=== PATIENT | male | born 1935 | race Caucasian/White ===

== ENCOUNTER 2016-12-05 15:26 | Observation (INO) | payer MEDICARE, BC ==
[~2016-12-05] VITALS: Ht 182.9 cm; Wt 83.5 kg
[2016-12-05] MEDS ORDERED: FLOM5CAP PO (15:48)
[2016-12-05] MEDS ORDERED: K-TA1TAB PO (15:48)
[2016-12-05] MEDS ORDERED: VITA100066 PO (15:48)
[2016-12-05] MEDS ORDERED: LOSA100T37 PO (15:48)
[2016-12-05] MEDS ORDERED: OMEP40CA2 PO (15:48)
[2016-12-05] MEDS ORDERED: METO25TA74 PO (15:48)
[2016-12-05] MEDS ORDERED: ZOCO5TAB PO (15:48)
[2016-12-05] MEDS ORDERED: AMLO5TAB2 PO (15:48)
[2016-12-05] MEDS ORDERED: MORPHINE 2 MG/ML 1ML SYRINGE IV ONE (16:30)
[2016-12-05 16:59] LABS: BASO % 0.2 % (0.0-1.0); EOS # 0.1 K/mm3 (0.0-0.50); EOS % 0.5 % (0.0-3.0); LARGE UNSTAINED CELL # 0.2 K/mm3 (0.0-0.4); LARGE UNSTAINED CELL % 1.3 % (0.0-4.0); LYMPH # 1.8 K/mm3 (1.5-4.5); LYMPH % 14.1 % (24.0-44.0); MEAN CORPUSCULAR HEMOGLOBIN 31.9 pg (27.0-33.0); MEAN CORPUSCULAR HGB CONC 34.4 g/dl (32.0-36.5); MEAN CORPUSCULAR VOLUME 92.8 fl (80.0-96.0); MONO % 8.9 % (0.0-5.0); NEUTROPHILS # 8.6 K/mm3 (1.8-7.7); NEUTROPHILS % 74.9 % (36.0-66.0); PLATELET COUNT, AUTOMATED 262 k/mm3 (150-450); RED CELL DISTRIBUTION WIDTH 12.2 % (11.5-14.5); WHITE BLOOD COUNT 11.5 K/mm3 (4.0-10.0)
[2016-12-05 17:16] LABS: ANION GAP 7 MEQ/L (8-16); BLOOD UREA NITROGEN 11 MG/DL (7-18); CALCIUM LEVEL 8.2 MG/DL (8.8-10.2); CARBON DIOXIDE LEVEL 28 MEQ/L (21-32); CHLORIDE LEVEL 99 MEQ/L (98-107); CREATININE FOR GFR 0.69 MG/DL (0.70-1.30); GLOMERULAR FILTRATION RATE > 60.0 (>35); GLUCOSE, FASTING 117 MG/DL (83-110); POTASSIUM SERUM 3.4 MEQ/L (3.5-5.1); SODIUM LEVEL 134 MEQ/L (136-145)
[2016-12-05 17:35] LABS: INR 1.08
[2016-12-05] MEDS ORDERED: OMEP20CA3 PO (17:58)
[2016-12-05] MEDS ORDERED: ASPI81TA7 PO (17:58)
[2016-12-05 20:30] VITALS: BP 198/100
[2016-12-05] MEDS: amLODIPine 5 MG TAB PO SCH (20:48)
[2016-12-05 22:00] VITALS: BP 176/92
[2016-12-05] MEDS ORDERED: LR 1,000 ML IV SCH (22:30)
[2016-12-05] MEDS ORDERED: METOPROLOL TART 25 MG TABLET PO ONE (22:30)
[2016-12-05] MEDS ORDERED: BISACODYL 5 MG TAB PO PRN (22:30)
[2016-12-05] MEDS ORDERED: cloNIDine 0.2 MG TAB PO ONE (22:30)
[2016-12-05] MEDS ORDERED: ACETAMINOPH W/CODEINE #3 TAB UD PO PRN (22:30)
[2016-12-06] MEDS ORDERED: POTASSIUM CHLORIDE 10 MEQ SR TABLET PO ONE
[2016-12-06] MEDS: cloNIDine 0.2 MG TAB PO SCH ×2 (00:45→05:34)
[2016-12-06 00:46] VITALS: BP 118/78
--- NOTE | 2016-12-06 03:10 | CR ---
DATE OF CONSULTATION: 12/05/2016 PRIMARY CARE PROVIDER: [facility] [place], no local physician. REFERRING PHYSICIAN: Dr. Miranda; ear, nose and throat surgeon. INPATIENT HOSPITALIST ATTENDING: Leon Montgomery MD. REASON FOR CONSULTATION: Medical management of hypertension. HISTORY OF PRESENTING ILLNESS: This is an 81-year-old male with prior history of hypertension, hypercholesterolemia, BPH, reflux disease, retinal detachment, cataract surgery, umbilical hernia repair, coronary artery disease (CAD), myocardial infarction (NH), admitted under ear, nose and throat as primary service due to complaints of recurrent epistaxis. Patient was in his usual state of health until Thursday when he developed epistaxis at home while he was standing. After pinching his nose, the epistaxis subsided for a few minutes and then recurred. He presented to [facility] and had ice packs placed on it and the epistaxis subsided. Patient then went home, had repeat rebleeding as he was on his front porch, went back to [facility] and he was sent to [place] for ear, nose, throat (ENT) surgeon that cauterized the area. After driving 3 hours, patient re-bled again on arriving at home. He then went to [facility] where another surgeon had packed the left naris. Patient denied any lightheadedness, shortness of breath, chest pain, palpitations, near syncope during the epistaxis episodes and immediately afterward. He came to [facility] from [facility] as there was ENT service available here. Dr. Miranda noted his blood pressure was 198/100. Hospitalist service was called for management of high blood pressure. Patient usually takes metoprolol, losartan and Norvasc, all of which he had taken. He currently denies any chest pain, pressure, tightness, lightheadedness and near syncope. No other complaints aside from the epistaxis, which has been recurrent since Thursday. Currently subsided after packing. PAST MEDICAL HISTORY: 1. CAD. 2. NH. 3. Hypertension. 4. Hypercholesterolemia. 5. BPH. 6. Reflux. 7. Retinal detachment. 8. Cataract surgery. 9. Umbilical hernia repair. PAST SURGICAL HISTORY: 1. Cataract surgery. 2. Retinal detachment surgery. 3. Umbilical hernia repair. 4. Cauterization in [place], [place] by ENT for recurrent epistaxis. ALLERGIES: No known drug allergies. HOME MEDICATIONS: - potassium 20 mEq daily - metoprolol 25 daily - Norvasc 5 mg twice a day - tamsulosin 0.4 daily - simvastatin 5 mg daily - omeprazole 20 daily - losartan 100/25 - hydrochlorothiazide one tablet daily - vitamin D 1000 units daily SOCIAL HISTORY: Previously smoked a few cigarettes, quit years ago. Social alcohol use. Drinks wine daily. Retired employee at [email or web address]. FAMILY HISTORY: Unknown, noncontributory due to age. REVIEW OF SYSTEMS: Per history of present illness (HPI), 12-point system otherwise negative. PHYSICAL EXAMINATION: VITAL SIGNS: Temperature 98.3, pulse 88, respiratory rate 22, blood pressure 198/100, 96% on room air. GENERAL: The patient is awake, alert, oriented times three, answering questions appropriately. No respiratory distress. Left naris is packed with dried blood around it. He has no stridor. LUNGS: Clear to auscultation. No wheezing, rales or rhonchi. HEART: S1, S2, sinus rhythm. ABDOMEN: Soft, nontender, nondistended. Positive bowel sounds. EXTREMITIES: Patient has compression boots. No pitting edema. LABORATORY DATA: White count 11.5, hemoglobin 14, hematocrit 41, platelet count 262, 74% neutrophils. Sodium 134, potassium 3.4, chloride 99, bicarbonate 28, BUN 11, creatinine 0.69, glucose 117, calcium 8.2. This is an 81-year-old male with history of coronary artery disease (CAD), myocardial infarction (NH), BPH, hypercholesterolemia, hypertension, cataract surgery and retinal detachment status post surgery, presents to the emergency room with recurrent epistaxis, had packing and cauterization with recurrent bleed, currently off of aspirin. Hospitalist service was consulted for management of patient's blood pressure. IMPRESSION: 1. Hypertension, uncontrolled. Patient has been given an extra dose of metoprolol 25 mg and clonidine 0.2 mg with some improvement to 166 systolic. Currently denies any chest pain, shortness of breath, blurred vision, or headache. No chest pressure, tightness. Will continue to monitor. Change metoprolol to 25 every 6 hours with holding parameters for systolic pressure less than 140 or heart rate less than 60. Clonidine 0.2 mg by mouth every 6 hours, hold for systolic pressure less than 140. Continue with patient's hydrochlorothiazide and losartan. Monitor for hypotension. Continue on Norvasc. 2. Epistaxis, recurrent, status post cauterization in [place], [place] and currently packed. Managed by primary team, Dr. Miranda. Continue holding the anticoagulation for now. 3. History of CAD, NH. Continue his simvastatin, metoprolol, losartan, hydrochlorothiazide. 4. Reflux disease. Continue on Prilosec. 5. BPH. Continue on Flomax. 6. Low potassium. Supplement with potassium chloride. 7. Compression stockings for deep venous thrombosis (DVT) prophylaxis. Patient will be signed out to Dr. Leon Montgomery at 7 a.m. on 12/06/2016, for hospitalist medical consult. LILLIAM
[2016-12-06 06:00] VITALS: BP 149/81
[2016-12-06] MEDS ORDERED: METOPROLOL TART 25 MG TABLET PO SCH (06:00)
[2016-12-06] MEDS ORDERED: LIDOCAINE W/EPINEPHRINE 1% 20ML VIAL SC ONE (08:30)
[2016-12-06 08:42] LABS: MEAN CORPUSCULAR HEMOGLOBIN 32.5 pg (27.0-33.0); MEAN CORPUSCULAR HGB CONC 34.6 g/dl (32.0-36.5); MEAN CORPUSCULAR VOLUME 94.1 fl (80.0-96.0); RED CELL DISTRIBUTION WIDTH 12.1 % (11.5-14.5)
[2016-12-06 08:49] LABS: ANION GAP 9 MEQ/L (8-16); BLOOD UREA NITROGEN 10 MG/DL (7-18); CARBON DIOXIDE LEVEL 26 MEQ/L (21-32); CHLORIDE LEVEL 99 MEQ/L (98-107); CREATININE FOR GFR 0.75 MG/DL (0.70-1.30); GLOMERULAR FILTRATION RATE > 60.0 (>35); GLUCOSE, FASTING 129 MG/DL (83-110); MAGNESIUM LEVEL 2.2 MG/DL (1.8-2.4); POTASSIUM SERUM 3.6 MEQ/L (3.5-5.1); SODIUM LEVEL 134 MEQ/L (136-145)
[2016-12-06] MEDS ORDERED: TAMSULOSIN 0.4 MG CAP PO SCH (09:00)
[2016-12-06] MEDS ORDERED: hydroCHLOROthiazide 25 MG TAB PO SCH (09:00)
[2016-12-06] MEDS ORDERED: VITAMIN D 1,000 INTERNATIONAL UNITS TABLET PO SCH (09:00)
[2016-12-06] MEDS ORDERED: LOSARTAN 50 MG TAB PO SCH (09:00)
[2016-12-06] MEDS ORDERED: amLODIPine 5 MG TAB PO SCH (09:00)
[2016-12-06] MEDS ORDERED: POTASSIUM CHLORIDE 10 MEQ SR TABLET PO SCH (09:00)
[2016-12-06] MEDS ORDERED: METOPROLOL SUCC *XL* 25MG TAB (TopROL *XL*) PO SCH ×2 (09:00→21:00)
[2016-12-06] MEDS ORDERED: **hydrALAZINE** 10 MG TAB PO SCH (09:00)
[2016-12-06] MEDS ORDERED: OMEPRAZOLE 20 MG CAP PO SCH (09:00)
[2016-12-06 10:25] VITALS: BP 140/70
[2016-12-06] MEDS: amLODIPine 5 MG TAB PO SCH (10:26)
--- NOTE | 2016-12-06 13:28 | CR ---
DATE OF CONSULTATION: 12/05/2016 CONSULTATION REQUESTED BY: Dr. Miranda from ENT REASON FOR CONSULTATION: Management of medical comorbidities. CHIEF COMPLAINT: The patient was admitted for uncontrollable epistaxis. PAST MEDICAL HISTORY: 1. Hypertension. 2. Hyperlipidemia. 3. Benign prostatic hypertrophy (BPH). 4. Coronary artery disease with history of stents. 5. Gastroesophageal reflux disease (GERD). HISTORY OF PRESENT ILLNESS: This is an 81-year-old male who started having epistaxis for the past two days. He initially went to [facility]. There they packed; however, that did not control the bleeding so was transferred to [facility] where he was cauterized and discharged. After he reached home yesterday, he again started bleeding so went to [facility]. There they packed with an inflated balloon and then discharged him home. Last night he came to our emergency room because he still feels like there may be some bleeding in the back and also feeling uncomfortable. The patient admitted to ENT service for epistaxis. The hospitalist service has been consulted for management of medical comorbidities. PAST SURGICAL HISTORY: 1. Umbilical hernia repair. HOME MEDICATIONS: - amlodipine 5 mg twice a day - aspirin 81 mg daily - cholecalciferol 1000 units daily - losartan - potassium hydrochlorothiazide 100/25 one tablet by mouth daily - metoprolol succinate 25 mg at bedtime - omeprazole 20 mg daily - potassium chloride 20 mEq daily - simvastatin 5 mg at bedtime - Flomax 0.4 mg at bedtime ALLERGIES: No known allergies. FAMILY HISTORY: Nothing significant. REVIEW OF SYSTEMS: Ten-point review of systems negative except as mentioned in history of present illness. PHYSICAL EXAMINATION: VITAL SIGNS: Temperature 99.1, pulse 80, blood pressure 163/91, pulse oximetry 95% on room air. GENERAL: The patient is awake, alert and oriented times three. Sitting up in bed in no acute distress. HEENT: Normocephalic, atraumatic. Moist mucous membranes. Anicteric eyes. There is balloon packing in place in both nostrils. CHEST: Clear to auscultation. CARDIOVASCULAR: S1, S2 regular. No rub, murmur or gallop. ABDOMEN: Soft, nontender. Bowel sounds present. EXTREMITIES: No edema. LABORATORY DATA: WBC 11.5, hemoglobin 14.2, platelets 262. Sodium 134, potassium 3.4, chloride 99, bicarbonate 28, BUN 11, creatinine 0.6, glucose 117, calcium 8.2. Coagulation studies are normal. ASSESSMENT AND PLAN: This is an 81-year-old male admitted for intractable epistaxis. Hospitalist service has been consulted for management of medical comorbidities. 1. Epistaxis, plan is as per ENT. 2. Hypertension. We will continue with amlodipine, losartan, hydrochlorothiazide, and metoprolol. 3. Coronary artery disease. We will continue with statin, metoprolol. 4. Benign prostatic hypertrophy (BPH). We will continue with Flomax. 5. Hyperlipidemia. We will continue with Zocor. 6. Hypokalemia. We will continue with potassium chloride. 7. Deep vein thrombosis (DVT) prophylaxis. TEDs and stockings. 8. Gastroesophageal reflux disease (GERD). We will continue with omeprazole.
[2016-12-06 14:00] VITALS: BP 138/88
--- NOTE | 2016-12-06 15:14 | IPNPDOC ---
Text Note Date of Service The patient was seen on 12/06/16. NOTE Subjective: Denies any complaints. No acute changes overnight. Epistaxis resolved. Objective: Vitals: (see below) General: No acute distress, laying comfortably in bed. HEENT: Moist mucous membranes. No active epistaxis. Neck: No JVD or lymphadenopathy Cardiac: RRR, No murmurs Pulm: Clear to auscultation b/l. No wheezing, rhonchi Abd: NT/ND + BS. Ext: No edema or cyanosis. Labs (see below) Images: Assessment/Plan 1. Epistaxis - management per ENT 2. HTN - on amlodipine, losartan, HCTZ, metoprolol. Hydralazine BID. 3. CAD - on BB, Statin. Will need to be restarted on ASA when cleared by ENT. 4. BPH on flomax 5. HLD - on zocor DVT prophy - SCDs VS,Fishbone, I+O VS, Fishbone, I+O Laboratory Tests 12/05/16 16:46 Red Blood Count 4.46, Mean Corpuscular Volume 92.8, Mean Corpuscular Hemoglobin 31.9, Mean Corpuscular Hemoglobin Concent 34.4, Red Cell Distribution Width 12.2 , Neutrophils (%) (Auto) 74.9 H, Lymphocytes (%) (Auto) 14.1 L, Monocytes (%) ( Auto) 8.9 H, Eosinophils (%) (Auto) 0.5, Basophils (%) (Auto) 0.2, Neutrophils # (Auto) 8.6 H, Lymphocytes # (Auto) 1.8, Monocytes # (Auto) 1.0 H, Eosinophils # (Auto) 0.1, Basophils # (Auto) 0.0, Calcium Level 8.2 L 12/06/16 08:11 Red Blood Count 4.11 L, Mean Corpuscular Volume 94.1, Mean Corpuscular Hemoglobin 32.5, Mean Corpuscular Hemoglobin Concent 34.6, Red Cell Distribution Width 12.1, Calcium Level 8.0 L Vital Signs Date Time Temp Pulse Resp B/P (MAP) Pulse Ox O2 Delivery O2 Flow Rate FiO2 12/06/16 14:00 138/88 (105) 12/06/16 08:00 Room Air 12/06/16 06:00 98.4 56 18 96 I&O- Last 24 Hours up to 6 AM 12/06/16 06:00 Intake Total 465 ml Output Total 625 ml Balance -160 ml ERIC JOHNSON MD December 06, 2016 15:14
[2016-12-06] MEDS ORDERED: SIMVASTATIN 5 MG TAB PO SCH (21:00)
--- NOTE | 2016-12-06 22:27 | HPE ---
DATE OF ADMISSION: 12/05/2016 Rudolph Rocha is an 81-year-old gentleman who presents with a history of epistaxis. It started several days ago. Patient went to [place], [place]. Patient went then to [place] and then from there went to [place], [place] where he had his nose cauterized. Patient then had further problems, went back to [place] and had his nose packed on both sides with Rhino Rocket. Patient continued to bleed and then presented here. Patient had some dripping, but not pouring out of blood. He is on a baby aspirin and has a history of hypertension. Otherwise, he is healthy. Examination shows he has the Rhino Rockets in place. I removed them. There was some old blood in his nose. There were some raw areas in the septum lateral wall, possibly just related to the trauma from the Rhino Rocket. I infiltrated lidocaine and epinephrine. Then using suction cautery I cauterized the inside of his nose. There was no bleeding afterwards. Patient will be monitored on the reed for 2 hours. If he has no bleeding, then he can be discharged. Patient would see his own doctor in followup.
== END 2016-12-06 15:45 | disposition home or self-care (01) ==
LOC: M ED 16:35 → M ED INP 17:43 → M MSPAV 20:27
PROVIDERS: ADMIT Otolaryngology; ATTEND Otolaryngology
DX: R04.0 Epistaxis (principal); I10 Essential (primary) hypertension; E87.6 Hypokalemia; I25.10 Atherosclerotic heart disease of native coronary artery without angina pectoris; N40.0 Benign prostatic hyperplasia without lower urinary tract symptoms; E78.5 Hyperlipidemia, unspecified; K21.9 Gastro-esophageal reflux disease without esophagitis; I25.2 Old myocardial infarction; Z79.899 Other long term (current) drug therapy; Z79.82 Long term (current) use of aspirin; Z87.891 Personal history of nicotine dependence
CPT/HCPCS: 30901; 36415; 80048; 83735; 85025; 85027; 85610; 85730; 86850; 86900; 86901; 93041; 96374; 99285; G0378